=== PATIENT | female | born 1940 | race Caucasian/White ===

== ENCOUNTER 2016-08-02 12:43 | Observation (INO) | payer BC ==
[2016-08-02 13:01] VITALS: BMI 23.4
--- NOTE | 2016-08-02 14:18 | PDOC ---
History of Present Illness - General Chief Complaint: Chest Pain Stated Complaint: POST SURG/ CARDIAC EVALUATION (REFERRED) Time Seen by Provider: 08/02/16 13:48 History Source: Patient Exam Limitations: No Limitations - History of Present Illness Initial Comments: 08/02/16 14:36 76-year-old female with recent left hip surgery performed at [facility] presents the ED for evaluation of episodic chest pain that occurred this morning accompanied with mild dizziness. Patient states took her home blood pressure which happened to be 86/50 with a heart rate of 122. Patient states went to her PCPs office today who had her seen by the home management supervisor Dr. Hampton who was concerned the patient might have a PE despite being on Eliquis which she was prescribed a few weeks ago after finding a DVT in her left leg. Patient states is currently on Lopressor, aspirin, and Cozaar. Patient is currently asymptomatic including dizziness, palpitations, shortness of breath, or calf tenderness. Presenting Symptoms: Chest Pain, Dizziness (mild this am) Timing/Duration: reports: resolved prior to arrival Severity/Quality: reports: mild, pressure Location: reports: substernal (left) Chest Pain Radiation: reports: no radiation Activities at Onset: reports: none Prior Chest Pain/Cardiac Workup: reports: No prior chest pain Beta Pari given by EMS (Core Measure): No Beta Pari taken at Home (Core Measure): Yes Beta Pari indicated at this time? (Core Measure): No Associated Symptoms: Yes: Chest Pain/pressure, Dizziness Past History - Past Medical History Allergies/Adverse Reactions: Allergies Allergy/AdvReac Type Severity Reaction Status Date / Time methylprednisolone AdvReac Intermediate Elevated Verified 06/04/11 22:20 Blood Pressure risedronate sodium AdvReac Intermediate Elevated Verified 06/04/11 22:19 [From Actonel] Blood Pressure Home Medications: Ambulatory Orders Aspirin [ASA -] 81 mg PO DAILY 08/02/16 Eliquis - 5 mg PO BID 08/02/16 Losartan Potassium [Cozaar -] 50 mg PO DAILY 08/02/16 Metoprolol Tartrate [Lopressor -] 25 mg PO HS 08/02/16 Metoprolol Tartrate [Lopressor] 50 mg PO AM 08/02/16 Cardiac Disorders: Yes HTN: Yes Hypercholesterolemia: Yes - Psycho/Social/Smoking Cessation Hx Anxiety: No Suicidal Ideation: No Smoking Status: No Smoking History: Never smoked Number of Cigarettes Smoked Daily: 0 Information on smoking cessation initiated: No Patient Lives Alone: No Lives with/in: spouse/SO Review of Systems - Review of Systems Able to Perform ROS?: Yes Constitutional: No: Symptoms Reported HEENTM: No: Symptoms Reported Respiratory: No: Symptoms reported Cardiac (ROS): Yes: Chest Pain, Lightheadedness ABD/GI: No: Symptoms Reported : No: Symptoms Reported Musculoskeletal: No: Symptoms Reported Integumentary: No: Symptoms Reported Neurological: Yes: Dizziness Endocrine: No: Symptoms Reported Hematologic/Lymphatic: No: Symptoms Reported *Physical Exam - Vital Signs Last Vital Signs Temp Pulse Resp BP Pulse Ox 98.1 F 98 H 18 148/69 98 08/02/16 16:55 08/02/16 16:55 08/02/16 16:55 08/02/16 16:55 08/02/16 16:55 - Physical Exam General Appearance: Yes: Nourished, Appropriately Dressed. No: Apparent Distress HEENT: negative: Pale Conjunctivae Neck: positive: Normal Thyroid, Supple Respiratory/Chest: positive: Lungs Clear, Normal Breath Sounds. negative: Respiratory Distress, Accessory Muscle Use Cardiovascular: positive: Regular Rhythm, Tachycardia. negative: Murmur Gastrointestinal/Abdominal: positive: Soft. negative: Tenderness Extremity: positive: Normal Capillary Refill. negative: Pedal Edema Integumentary: positive: Normal Color, Warm, Moist Neurologic: positive: Motor Strength 5/5 Heart Score/ECG Review - History History: Slightly suspicious - Electrocardiogram EKG: Normal - Age Age: >/= 65 - Risk Factors Risk Factors Heart Score: Yes Hx Hypercholesterolemia, Yes Hx Hypertension Based on the list above the patient has:: 1-2 risk factors - ECG Intrepretation Rhythm: Regular Rhythm (rate [address] elevation. Intervals are regular) ED Treatment Course - LABORATORY CBC & Chemistry Diagram: 08/02/16 14:19 08/02/16 14:19 - ADDITIONAL ORDERS Additional order review: Laboratory Results 08/02/16 08/02/16 08/02/16 14:19 14:19 14:19 INR 1.21 H PTT (Actin FS) 36.6 H Sodium 143 Potassium 4.0 Chloride 104 Carbon Dioxide 24 Anion Gap 15 BUN 15 Creatinine 0.7 Creat Clearance w eGFR > 60 Random Glucose 128 H Calcium 8.8 Magnesium 2.1 Total Bilirubin 0.3 AST 19 ALT 24 Alkaline Phosphatase 89 Creatine Kinase 78 Troponin I 0.06 H Total Protein 6.7 Albumin 3.9 08/02/16 14:19 RBC 4.56 MCV 85.3 MCHC 33.3 RDW 13.0 MPV 8.4 Neutrophils % 71.9 Lymphocytes % 21.9 Monocytes % 5.8 Eosinophils % 0.1 Basophils % 0.3 - RADIOLOGY Radiology Studies Ordered: Category Date Time Status CHEST CT WITH CONTRAST [CT] Stat CT Scan 08/02/16 16:00 Completed Medical Decision Making - Medical Decision Making 08/02/16 16:40 Patient sent here from home management supervisor to rule out PE secondary to complaint of chest pain and elevated heart rate at home based on home monitor. Patient currently on Eliquis for DVT that was diagnosed last week in her left leg likely due to her recent hip surgery. Patient then had no acute findings. Patient was ordered for cardiac workup including a CT w/ contrast. will contact cardiology shortly 08/02/16 17:44 CT of the chest shows no evidence of PE or other acute findings. Call placed to home management supervisor Dr. Johnson to discuss the results. 08/02/16 17:45 Laboratory Tests 08/02/16 08/02/16 08/02/16 14:19 14:19 14:19 WBC 7.9 Hgb 12.9 Hct 38.9 Neutrophils % 71.9 INR 1.21 H PTT (Actin FS) Sodium 143 Potassium 4.0 Chloride 104 Carbon Dioxide 24 BUN 15 Creatinine 0.7 Creat Clearance w eGFR > 60 Random Glucose 128 H Calcium 8.8 Magnesium 2.1 Total Bilirubin 0.3 AST 19 ALT 24 Creatine Kinase 78 Troponin I 0.06 H 08/02/16 14:19 WBC Hgb Hct Neutrophils % INR PTT (Actin FS) 36.6 H Sodium Potassium Chloride Carbon Dioxide BUN Creatinine Creat Clearance w eGFR Random Glucose Calcium Magnesium Total Bilirubin AST ALT Creatine Kinase Troponin I Patient also has a mildly elevated troponin. Patient remains asymptomatic. 08/02/16 18:[address] Alonso who will accept patient to service on telemetry and recommended to add an echocardiogram. Call placed to Dr. Yap for admission. 08/02/16 18:[address] Yap who will be the medical provider for this patient. *DC/Admit/Observation/Transfer Diagnosis at time of Disposition: Elevated troponin Chest pain Qualifiers: Chest pain type: unspecified Qualified Code(s): R07.9 - Chest pain, unspecified - Discharge Dispostion Admit: Yes Decision to Admit order Date/Time: Decision to Admit Order Category Date Time Status Decision to Admit to Hospital Routine Admission 08/02/16 18:24 Active - Referrals Referrals: Jovan Castillo MD [Primary Care Provider] -
[2016-08-02 14:42] LABS: BASOPHIL 0.3 % (0-2.0); EOSINOPHIL 0.1 % (0-4.5); MCH 28.4 pg (25.7-33.7); MCHC 33.3 g/dl (32.0-36.0); MEAN CELL VOLUME 85.3 fl (80-96); MEAN PLT VOLUME 8.4 fl (7.5-11.1); NEUTROPHILS 71.9 % (42.8-82.8); PLATELET COUNT 173 K/MM3 (134-434); WHITE BLOOD COUNT 7.9 K/mm3 (4.0-10.0)
[2016-08-02 15:26] LABS: ALBUMIN 3.9 g/dl (3.4-5.0); ANION GAP 15 (8-16); BILIRUBIN,TOTAL 0.3 mg/dL (0.2-1.0); CALCIUM 8.8 mg/dL (8.5-10.1); CO2 24 mmol/L (21-32); CREATININE 0.7 mg/dL (0.55-1.02); GLUCOSE,RANDOM 128 mg/dL (74-106); MAGNESIUM 2.1 mg/dL (1.8-2.4); SGOT/AST 19 U/L (15-37); SGPT/ALT 24 U/L (12-78); TOT PROT 6.7 g/dl (6.4-8.2)
[2016-08-02 15:29] LABS: ALK PHOS 89 U/L (45-117); TROPONIN I 0.06 ng/ml (0.00-0.05)
[2016-08-02 15:31] LABS: INR 1.21 (0.82-1.09); PROTHROMBIN TIME (PATIENT) 13.4 SEC (9.98-11.88)
--- NOTE | 2016-08-02 18:52 | PDOC ---
*Physical Exam - Vital Signs Last Vital Signs Temp Pulse Resp BP Pulse Ox 98.1 F 98 H 18 148/69 98 08/02/16 16:55 08/02/16 16:55 08/02/16 16:55 08/02/16 16:55 08/02/16 16:55 ED Treatment Course - LABORATORY CBC & Chemistry Diagram: 08/02/16 14:19 08/02/16 14:19 - ADDITIONAL ORDERS Additional order review: Laboratory Results 08/02/16 08/02/16 08/02/16 14:19 14:19 14:19 INR 1.21 H PTT (Actin FS) 36.6 H Sodium 143 Potassium 4.0 Chloride 104 Carbon Dioxide 24 Anion Gap 15 BUN 15 Creatinine 0.7 Creat Clearance w eGFR > 60 Random Glucose 128 H Calcium 8.8 Magnesium 2.1 Total Bilirubin 0.3 AST 19 ALT 24 Alkaline Phosphatase 89 Creatine Kinase 78 Troponin I 0.06 H Total Protein 6.7 Albumin 3.9 08/02/16 14:19 RBC 4.56 MCV 85.3 MCHC 33.3 RDW 13.0 MPV 8.4 Neutrophils % 71.9 Lymphocytes % 21.9 Monocytes % 5.8 Eosinophils % 0.1 Basophils % 0.3 Medical Decision Making - Medical Decision Making 08/02/16 18:52 Pt seen by Midlevel Provider I agree with plan as outlined by Midlevel Provider *DC/Admit/Observation/Transfer Diagnosis at time of Disposition: Elevated troponin Chest pain Qualifiers: Chest pain type: unspecified Qualified Code(s): R07.9 - Chest pain, unspecified - Discharge Dispostion Condition at time of disposition: Fair - Referrals - Patient Instructions - Post Discharge Activity
[2016-08-02 19:58] LABS: TROPONIN I 0.06 ng/ml (0.00-0.05)
[2016-08-02] MEDS ORDERED: APIXABAN 5 MG TABLET PO ONE (21:45)
--- NOTE | 2016-08-02 23:39 | HP ---
Admitting History and Physical - Admission Chief Complaint: Chest pain History of Present Illness: Pt is a 76 y/o female who had undergone a Lt hip replacement in 06/14. Pt went to see her PMD/cardio bc of chest pain w/ an intensity of 5/10 and substernal. The chest pain is nonradiating. Pt denies SOB but was feeling lightheaded and went to doctor who found pt to have heart rate of 122 and BP 86/50 and pt was sent to the ER where she had a ct scan chest wc was )-) for PE. Pt also recently started on eliquis for ?DVT. In the ER pt also found to have slightly elevated troponin. History Source: Patient - Past Medical History Cardiovascular: Yes: HTN - Past Surgical History Past Surgical History: Yes: Joint Replacement (Lt hip replacement) - Smoking History Smoking history: Never smoked Aproximately how many cigarettes per day: 0 - Alcohol/Substance Use Hx Alcohol Use: No Home Medications - Allergies Allergies/Adverse Reactions: Allergies Allergy/AdvReac Type Severity Reaction Status Date / Time No Known Drug Allergies Allergy Verified 08/02/16 21:35 methylprednisolone AdvReac Intermediate Elevated Verified 06/04/11 22:20 Blood Pressure risedronate sodium AdvReac Intermediate Elevated Verified 06/04/11 22:19 [From Actonel] Blood Pressure - Home Medications Home Medications: Ambulatory Orders Aspirin [ASA -] 81 mg PO DAILY tab.chew 08/03/16 Losartan Potassium [Cozaar -] 50 mg PO DAILY tablet 08/03/16 Metoprolol Tartrate [Lopressor -] 50 mg PO AM tablet 08/03/16 Family Disease History - Family Disease History Family History: Unremarkable Review of Systems - Review of Systems Constitutional: reports: No Symptoms Eyes: reports: No Symptoms HENT: reports: No Symptoms Neck: reports: No Symptoms Cardiovascular: reports: Chest Pain Respiratory: reports: No Symptoms Gastrointestinal: reports: No Symptoms Physical Examination Vital Signs: Vital Signs Temperature 97.9 F 08/02/16 21:15 Pulse Rate 82 08/02/16 21:15 Respiratory Rate 20 08/02/16 21:15 Blood Pressure 131/74 08/02/16 21:15 O2 Sat by Pulse Oximetry (%) 98 08/02/16 16:55 Constitutional: Yes: Well Nourished Cardiovascular: Yes: WNL, Regular Rate and Rhythm Respiratory: Yes: WNL, Regular, CTA Bilaterally Gastrointestinal: Yes: WNL, Normal Bowel Sounds, Soft Breast(s): Yes: WNL Extremities: Yes: WNL Edema: No Neurological: Yes: WNL, Alert, Oriented Problem List - Problems (1) Chest pain Assessment/Plan: admit to tele Cardio consult CT scan chest negative for PE Pt is on eliquis for ?DVT Will check dopplers Code(s): R07.9 - CHEST PAIN, UNSPECIFIED Qualifiers: Chest pain type: unspecified Qualified Code(s): R07.9 - Chest pain, unspecified (2) Elevated troponin Assessment/Plan: Serial cpk/troponin As per cardio Check echo/stress test Code(s): R79.89 - OTHER SPECIFIED ABNORMAL FINDINGS OF BLOOD CHEMISTRY
[2016-08-03 02:23] LABS: URINE APPEARANCE CLEAR; URINE BILIRUBIN NEGATIVE (NEGATIVE); URINE BLOOD NEGATIVE (NEGATIVE); URINE COLOR LTYELLOW; URINE GLUCOSE (UA) 1+ (NEGATIVE); URINE KETONE NEGATIVE (NEGATIVE); URINE LEUK ESTERASE NEGATIVE (NEGATIVE); URINE NITRITE NEGATIVE (NEGATIVE); URINE PROTEIN NEGATIVE (NEGATIVE); URINE UROBILINOGEN NEGATIVE E.U./dl (0.2-1.0)
[2016-08-03] MEDS ORDERED: METOPROLOL TARTRATE 50 MG TABLET (FP) PO SCH (07:00)
--- NOTE | 2016-08-03 08:30 | PN ---
Progress Note (short form) - Note Progress Note: Cardiology Consult Dictated 76F s/p hip surgery, recently diagnosed DVT on Eliquis referred to ER by my associate yesterday due to chest pain, elevated heart rate and mild SOB. CTA negative for PE ECG without acute ST changes. REC: 1. Echo 2. Persantine MIBI 3. Vascular evaluation for incidentally noted splenic artery aneurysm
[2016-08-03 09:23] LABS: TROPONIN I 0.04 ng/ml (0.00-0.05)
[2016-08-03] MEDS ORDERED: ASPIRIN 81 MG CHEWABLE TABLETS PO SCH (10:00)
[2016-08-03] MEDS ORDERED: LOSARTAN POTASSIUM 50 MG TABLET (FP) PO SCH (10:00)
[2016-08-03] MEDS ORDERED: WATER IVPB ONE (10:00)
[2016-08-03] MEDS ORDERED: DEXTROSE 5% IVPB ONE (10:00)
[2016-08-03] MEDS ORDERED: DIPYRIDAMOLE STRESS TEST IVPB ONE (10:00)
--- NOTE | 2016-08-03 14:12 | EKG ---
Test Reason : Blood Pressure : / mmHG Vent. Rate : 096 BPM Atrial Rate : 096 BPM P-R Int : 164 ms QRS Dur : 072 ms QT Int : 338 ms P-R-T Axes : 059 029 048 degrees QTc Int : 427 ms NORMAL SINUS RHYTHM NORMAL ECG WHEN COMPARED WITH ECG OF 05-JUN-2011 02:59, NO SIGNIFICANT CHANGE WAS FOUND Confirmed by NICCI BROWNE MD ([id number]) on 08/03/2016 2:12:12 PM Referred By: Confirmed By:NICCI BROWNE MD
--- NOTE | 2016-08-03 14:12 | EKG ---
Test Reason : Blood Pressure : / mmHG Vent. Rate : 107 BPM Atrial Rate : 107 BPM P-R Int : 152 ms QRS Dur : 070 ms QT Int : 348 ms P-R-T Axes : 061 059 035 degrees QTc Int : 464 ms SINUS TACHYCARDIA WITH OCCASIONAL and consecutive PREMATURE VENTRICULAR COMPLEXES POSSIBLE LEFT ATRIAL ENLARGEMENT ABNORMAL ECG WHEN COMPARED WITH ECG OF 02-AUG-2016 13:14, PREMATURE VENTRICULAR COMPLEXES ARE NOW PRESENT Confirmed by PAVAN ROSALES, NICCI ([id number]) on 08/03/2016 2:12:07 PM Referred By: Confirmed By:NICCI BROWNE MD
[2016-08-03] MEDS: APIXABAN 5 MG TABLET PO SCH ×2 (15:26→21:29)
--- NOTE | 2016-08-03 17:40 | PN ---
Progress Note, Physician - Current Medication List Current Medications: Active Medications Apixaban (Eliquis -) 5 mg PO BID [facility] Last Admin: 08/03/16 15:26 Dose: 5 mg Aspirin (Asa -) 81 mg PO DAILY [facility] Last Admin: 08/03/16 15:26 Dose: 81 mg Losartan Potassium (Cozaar -) 50 mg PO DAILY [facility] Last Admin: 08/03/16 15:26 Dose: 50 mg Metoprolol Tartrate (Lopressor -) 25 mg PO HS [facility] Metoprolol Tartrate (Lopressor -) 50 mg PO AM [facility] Last Admin: 08/03/16 06:30 Dose: 50 mg - Objective Vital Signs: Vital Signs Temperature 97.7 F 08/03/16 17:00 Pulse Rate 88 08/03/16 17:00 Respiratory Rate 20 08/03/16 17:00 Blood Pressure 136/63 08/03/16 17:00 O2 Sat by Pulse Oximetry (%) 98 08/02/16 16:55 Neck: Yes: Supple Cardiovascular: Yes: WNL, Regular Rate and Rhythm Respiratory: Yes: WNL, Regular, CTA Bilaterally Gastrointestinal: Yes: WNL, Normal Bowel Sounds, Soft Labs: INR, PTT INR 1.21 (0.82-1.09) H 08/02/16 14:19 Problem List - Problems (1) Chest pain Assessment/Plan: Chest pain resolved BP stable DC home Stress test was normal Code(s): R07.9 - CHEST PAIN, UNSPECIFIED Qualifiers: Chest pain type: unspecified Qualified Code(s): R07.9 - Chest pain, unspecified (2) Elevated troponin Code(s): R79.89 - OTHER SPECIFIED ABNORMAL FINDINGS OF BLOOD CHEMISTRY
--- NOTE | 2016-08-03 19:14 | CONS ---
DATE OF CONSULTATION: DATE OF DICTATION: 08/03/2016 CONSULTATION REQUESTED BY: Greta Yap MD The patient is a 76-year-old female referred to the emergency room yesterday by my office partner, Dr. Melendez. She underwent recent left hip surgery at [facility] and was found in the office to be complaining of atypical chest pain associated with mild dizziness and was found to be relatively hypotensive in the office with a heart rate of 122. She was sent to the ER to rule out pulmonary embolism after she had been diagnosed with a left lower extremity DVT several weeks ago and has been on Eliquis. CT of the chest was negative for pulmonary embolism. Cardiac enzymes were negative but were slightly above 0 and therefore she was admitted for further observation and cardiac evaluation. The patient states she had some mild substernal chest tightness yesterday morning, which has resolved and has not recurred since yesterday morning. She denies shortness of breath, palpitations at this time, syncope or heart failure symptoms. Her past medical history is as outlined above and also includes hypertension. She is allergic to SOLU-MEDROL and RISEDRONATE. Her current medications include Eliquis 5 mg b.i.d., aspirin 81 mg daily, losartan 50 daily, Lopressor 25 in the morning and 25 nightly. Family history is noncontributory. SOCIAL HISTORY: Nonsmoker. PHYSICAL EXAMINATION: General: The patient is alert, no distress, afebrile. Vital Signs: Afebrile. Temperature 98.2. Pulse 99. Blood pressure 147/71. Neck: No bruits. Heart: S1, 2, regular. No murmurs. Chest: Clear. Abdomen: Soft, nontender. Extremities: No edema. EKG: Sinus at 96 beats per minute with no acute ST-T changes. Chest CT showed no pulmonary embolism but an incidentally detected 7 mm splenic artery aneurysm of unclear clinical significance. Laboratories were basically unremarkable. CBC was normal. INR 1.21. SMA-7 was normal. Cardiac enzymes: Negative CK x2. Troponin 0.06, 0.06, and the 3rd one is currently pending. ASSESSMENT: A 76-year-old female, recent hip surgery, with left lower extremity DVT, on anticoagulation, admitted for atypical chest pain and tachycardia. EKG without acute changes. Cardiac enzymes are negative x2. CTA negative for PE. PLAN: 1. Echo today. 2. Persantine nuclear stress test. 3. Further recommendations pending above diagnostic studies. Geo [id number]
[2016-08-03 20:22] VITALS: BP 147/65; PULSE 96; TEMP 98.2
[2016-08-03] MEDS ORDERED: METOPROLOL TARTRATE 25 MG TABLET (FP) PO SCH (22:00)
== END 2016-08-03 21:34 | disposition home or self-care (01) ==
LOC: JER 12:43 → JERBED 18:24 → J4W 21:24
PROVIDERS: ADMIT Internal Medicine; ATTEND Internal Medicine
DX: R07.89 Other chest pain (principal); R42 Dizziness and giddiness; Z86.718 Personal history of other venous thrombosis and embolism; Z79.01 Long term (current) use of anticoagulants; R00.0 Tachycardia, unspecified
CPT/HCPCS: 36415; 71260-TC; 78452-TC; 80053; 81003; 82550; 83735; 84484; 85025; 85610; 85730; 93005; 93010; 93017; 93306-TC; 93970-TC; 99285-25; A9502; G0378; J1245

== ENCOUNTER 2016-10-06 06:05 | Day surgery (SDC) | payer BC ==
[2016-10-05 13:16] VITALS: BMI 21.9
--- NOTE | 2016-10-05 13:55 | HP ---
- Patient Scheduled date of Surgery: 10/06/16 Scheduled Surgical Procedure: Phacoemulsification and cataract extraction with PCIOL Affected Eye: Right Chief Complaint (Indication for surgery): Decreased vision affecting ADLs - Ocular History Other Eye History: Narrow angle glaucoma Eye Medications: vigamoxt tid Od Previous Eye Surgery: s/p LPI OU - Medical History Illnesses: Hypertension (s/p hip replacement) Current Medications: Ambulatory Orders Aspirin [ASA -] 81 mg PO DAILY tab.chew 08/03/16 Losartan Potassium [Cozaar -] 50 mg PO DAILY tablet 08/03/16 Metoprolol Tartrate [Lopressor -] 50 mg PO AM tablet 08/03/16 Allergies/Adverse Reactions: Allergies Allergy/AdvReac Type Severity Reaction Status Date / Time methylprednisolone AdvReac Intermediate Elevated Verified 06/04/11 22:20 Blood Pressure risedronate sodium AdvReac Intermediate Elevated Verified 06/04/11 22:19 [From Actonel] Blood Pressure Ocular Examination - Best Corrected Visual Acuity Distance: Right eye: 20/50 Distance: Left eye: 20/40 - External/Slit Lamp Examination Abnormalities: Pi patent - Intraocular Pressure Intraocular Pressure - Right eye: 16 Intraocular Pressure-Left eye: 16 - Lens Lens: 3+ NS - Vitreous/Retina Vitreous/Retina: c:d 0.35 m/v/p wnl +pvd - Special Examination M - Right eye: pl-1.75 x 90 M - Left eye: +1.00-1.75 x 95 K - Right eye: 43.25/44.50x 180 K - Left eye: 43.25/44.25 x180 AL - Right eye: 22.62 AL - Left eye: 22.81 IOL bag: +22.5 d hoya 251 IOL sulcus: +21.5 d hoya 231 IOL AC: +19.0 d mta 4uo - Impression Impression: Cataract Right Eye - Plan Plan: Phacoemulsification and cataract extraction - IOL Right eye Post-hospital care will be provided in office on: 10/06/16
--- NOTE | 2016-10-05 14:30 | HP ---
History & Physical Update - History History: No Change - Physical Physical: No Change - Assessment Assessment: No Change - Plan Plan: No Change
[~2016-10-06 06:05] MED LIST: ACETAMINOPHEN 325 MG TABLET (FP) PO PRN; TOBRAMYCIN/DEXAMETHASONE OPHTH. OINTMENT 1 TUBE TP ONE
[2016-10-06] MEDS ORDERED: TROPICAMIDE 1% OPHTH SOLN 15 ML BOTTLE ONE (06:31)
[2016-10-06] MEDS ORDERED: CIPROFLOXACIN 0.3% EYE DROPS 5 ML BOTTLE ONE (06:32)
[2016-10-06] MEDS ORDERED: DICLOFENAC SODIUM 0.1% OPHTHALMIC 2.5ML BOTTLE ONE (06:32)
[2016-10-06] MEDS ORDERED: PHENYLEPHRINE 2.5% OPHTH SOLN 15 ML BOTTLE ONE (06:32)
[2016-10-06] MEDS: TROPICAMIDE 1% OPHTH SOLN 15 ML BOTTLE OP SCH ×3 (06:40→07:09)
[2016-10-06] MEDS: DICLOFENAC SODIUM 0.1% OPHTHALMIC 2.5ML BOTTLE OP SCH ×3 (06:40→07:08)
[2016-10-06] MEDS: PHENYLEPHRINE 2.5% OPHTH SOLN 15 ML BOTTLE OP SCH ×3 (06:40→07:08)
[2016-10-06] MEDS: CIPROFLOXACIN HCL 0.3% OPHTH 2.5ML BOTTLE OP SCH ×3 (06:40→07:08)
[2016-10-06 06:41] VITALS: TEMP 97.9
[2016-10-06] MEDS ORDERED: TOBRAMYCIN/DEXAMETHASONE OPHTH. OINTMENT 1 TUBE ONE (07:11)
[2016-10-06] MEDS ORDERED: EPINEPHrine/PF 1 MG/1 ML (1:1,000) AMPULE ONE (07:11)
[2016-10-06] MEDS ORDERED: POVIDONE-IODINE 5% OPHTHALMIC PREP 30 ML SOLUTION ONE (07:12)
[2016-10-06] MEDS ORDERED: LIDOCAINE HCL/PF 1% SDV 5ML VIAL ONE (07:12)
[2016-10-06] MEDS ORDERED: ACETYLCHOLINE 1:100 INTRA-OCUL 20 MG/2 ML KIT ONE (07:12)
[2016-10-06] MEDS ORDERED: BSS (NA/CA/MG/K) BALANCED SALT SOLUTION OPHTH SOLN 15 ML BOTTLE ONE (07:12)
[2016-10-06] MEDS ORDERED: LIDOCAINE HCL 2% JELLY (5 ML/TUBE) ONE (07:13)
[2016-10-06] MEDS ORDERED: LIDOCAINE HCL 2% JELLY (5 ML/TUBE) TP ONE (07:29)
[2016-10-06] MEDS ORDERED: MIDAZOLAM HCL 2 MG/2 ML SINGLE DOSE VIAL ONE ×2 (07:34→07:52)
[2016-10-06] MEDS ORDERED: LIDOCAINE HCL 1% PRESERVATIVE FREE - 30ML VIAL IO ONE (07:43)
[2016-10-06] MEDS ORDERED: CHONDROITIN SU A/HYALUR SOD 1 KIT IO ONE (07:44)
[2016-10-06] MEDS ORDERED: TOBRAMYCIN/DEXAMETHASONE OPHTH. OINTMENT 1 TUBE TP ONE (08:21)
--- NOTE | 2016-10-06 08:27 | OP ---
Ophthalmology Operative Note Pre-Operative Diagnosis: Cataract Affected Eye: Right Operation: Phacoemulsification and cataract extraction with PCIOL Findings: mature cataract right eye Post-Operative Diagnosis: Other (mature cataract right eye) Stamping Press Operator: None Anesthesiologist: Rosa Phillips MD Anesthesia: Topical Specimens Removed: none Estimated blood loss: none Drains & Tubes with Location: none Operative Report Dictated: Yes
[2016-10-06 09:45] VITALS: BP 130/70; PULSE 70
--- NOTE | 2016-10-06 11:13 | OP ---
DATE OF OPERATION: PREOPERATIVE DIAGNOSIS: Cataract right eye. POSTOPERATIVE DIAGNOSIS: Mature cataract right eye. PROCEDURE: Phacoemulsification and cataract extraction with insertion of posterior chamber intraocular lens right eye. SURGEON: Demi Go MD HAND TUBE BENDER: None. ANESTHESIA: Topical. ANESTHESIOLOGIST: Dr. Phillips OPERATIVE PROCEDURE: The patient received viscous lidocaine gel in the holding area and was brought to the operating room and prepped and draped in the usual sterile fashion and gently sedated. Ophthalmic Betadine was instilled into the inferior fornix, and lashes were taped out of the surgical field. An eyelid speculum was placed into the right eye. A paracentesis was made in superior clear cornea at the limbus. Then 0.5 mL of nonpreserved lidocaine was injected into the anterior chamber, and viscoelastic material was instilled into the anterior chamber via the paracentesis. A 2.4-mm keratome was then used to create the main incision in temporal clear cornea at the limbus. A continuous curvilinear capsulorrhexis was performed using a cystotome and Utrata forceps. Hyrodissection of the lens cortex was performed using BSS on a cannula until the nucleus was noted to be freely rotating. The phacoemulsification tip was then inserted via the main wound and used to sculpt 2 perpendicular grooves into the lens nucleus. The nucleus was cracked into 4 quadrants using 2 instruments. Each quadrant was lifted out of the capsule into the iris plane and individually phacoemulsified. The remaining cortical material was then aspirated using the irrigation and aspiration port. The capsular bag was inflated using Provisc, and a preloaded Hoya lens model 251, power +22.5 diopter was injected into the capsular bag and centered using Sinskey hook. The residual viscoelastic was removed from the anterior chamber using irrigation and aspiration. The wound edges were hydrated using BSS. The wound was tested for leakage. It was found to be watertight. Therefore, Tobradex ointment was placed in the eye, and a speculum was removed from the eye. A sterile dressing and shield were placed over the eye, and the patient was transferred to the recovery room in stable condition and told to follow up in the evening. DEMI GO M.D. [id number]
== END 2016-10-06 09:40 | disposition home or self-care (01) ==
LOC: JASU-SURG 06:05
PROVIDERS: ATTEND Ophthalmology
PROC: 08RK3JZ Replacement of Left Lens with Synthetic Substitute, Percutaneous Approach (ICD-10-PCS; principal; 2016-10-06 07:30)
DX: H25.091 Other age-related incipient cataract, right eye (principal)

== ENCOUNTER 2018-04-12 08:15 | Day surgery (SDC) | payer BC ==
[2018-04-10 16:21] VITALS: BMI 23.3
--- NOTE | 2018-04-11 14:13 | HP ---
- Patient Scheduled date of Surgery: 04/12/18 Scheduled Surgical Procedure: Phacoemulsification and cataract extraction with PCIOL Affected Eye: Left Chief Complaint (Indication for surgery): Decreased vision affecting ADLs - Ocular History Other Eye History: Other (narrow angles, PVD OS) Eye Medications: vigamox Previous Eye Surgery: s/p ce/pciol OD mature + 22.5 AUOOTO - Medical History Illnesses: Hypertension, Hypercholesterolemia Current Medications: Ambulatory Orders Aspirin [ASA -] 81 mg PO DAILY tab.chew 08/03/16 Losartan Potassium [Cozaar -] 50 mg PO DAILY tablet 08/03/16 Metoprolol Tartrate [Lopressor -] 50 mg PO AM tablet 08/03/16 Allergies/Adverse Reactions: Allergies Allergy/AdvReac Type Severity Reaction Status Date / Time risedronate sodium Allergy Intermediate Elevated Verified 04/10/18 16:18 [From Actonel] Blood Pressure Ocular Examination - Best Corrected Visual Acuity Distance: Right eye: 20/20 Distance: Left eye: 20/50- - External/Slit Lamp Examination Abnormalities: PI patent - Intraocular Pressure Intraocular Pressure - Right eye: 16 Intraocular Pressure-Left eye: 16 - Lens Lens: 3+ NS vacuoles - Vitreous/Retina Vitreous/Retina: c:d 0.4 m/v wnl + pVD, p wnl - Special Examination M - Right eye: plano-1.25 x 090 M - Left eye: +1.00-2.00 x 095 K - Right eye: 43/44.25 x 175 K - Left eye: 43.25/44.50 x 090 AL - Left eye: 22.58 IOL bag: +23.0 AUOOTO IOL sulcus: +22..0 [id number] IOL AC: +19.5 MTA4uo - Impression Impression: Cataract Left Eye - Plan Plan: Phacoemulsification and cataract extraction - IOL Left eye Post-hospital care will be provided in office on: 04/12/18
--- NOTE | 2018-04-12 07:20 | HP ---
History & Physical Update - History History: No Change - Physical Physical: No Change - Assessment Assessment: No Change - Plan Plan: No Change (Reviewed H and P from Dr. Castillo on 03/29/18 no changes)
[~2018-04-12 08:15] MED LIST changes: +BSS (NA/CA/MG/K) BALANCED SALT SOLUTION OPHTH SOLN 15 ML BOTTLE IO ONE; +CHONDROITIN SU A/HYALUR SOD 1 KIT IO ONE; +LIDOCAINE HCL 1% PRESERVATIVE FREE - 30ML VIAL IO ONE; +LIDOCAINE HCL 2% JELLY (5 ML/TUBE) TP ONE; +POVIDONE-IODINE 5% OPHTHALMIC PREP 30 ML SOLUTION OS ONE; +TOBRAMYCIN 0.3% OPHTH OINT 3.5 GM OS ONE
[2018-04-12] MEDS ORDERED: KETOROLAC TROMETHAMINE 0.5% EYE DROP 1 DROP DROPS ONE (08:37)
[2018-04-12] MEDS ORDERED: TROPICAMIDE 1% OPHTH SOLN 15 ML BOTTLE ONE (08:37)
[2018-04-12] MEDS ORDERED: PHENYLEPHRINE 2.5% OPHTH SOLN 15 ML BOTTLE ONE (08:37)
[2018-04-12] MEDS ORDERED: CIPROFLOXACIN HCL 0.3% OPHTH 2.5ML BOTTLE ONE (08:37)
[2018-04-12] MEDS: PHENYLEPHRINE 2.5% OPHTH SOLN 15 ML BOTTLE OP SCH ×2 (08:45→08:55)
[2018-04-12] MEDS: CIPROFLOXACIN HCL 0.3% OPHTH 2.5ML BOTTLE OP SCH ×3 (08:45→09:05)
[2018-04-12] MEDS: TROPICAMIDE 1% OPHTH SOLN 15 ML BOTTLE OP SCH ×3 (08:45→09:05)
[2018-04-12] MEDS: KETOROLAC TROMETHAMINE 0.5% EYE DROP 1 DROP DROPS OP SCH ×3 (08:45→09:05)
[2018-04-12] MEDS ORDERED: MIDAZOLAM HCL 2 MG/2 ML SINGLE DOSE VIAL ONE (09:10)
[2018-04-12] MEDS ORDERED: LIDOCAINE HCL 2% JELLY (5 ML/TUBE) TP ONE (09:24)
[2018-04-12] MEDS ORDERED: POVIDONE-IODINE 5% OPHTHALMIC PREP 30 ML SOLUTION OS ONE (09:27)
[2018-04-12] MEDS ORDERED: BSS (NA/CA/MG/K) BALANCED SALT SOLUTION OPHTH SOLN 15 ML BOTTLE IO ONE (09:34)
[2018-04-12] MEDS ORDERED: LIDOCAINE HCL 1% PRESERVATIVE FREE - 30ML VIAL IO ONE (09:34)
[2018-04-12] MEDS ORDERED: CHONDROITIN SU A/HYALUR SOD 1 KIT IO ONE ×2 (09:38)
[2018-04-12] MEDS ORDERED: EPINEPHrine/PF 1 MG/1 ML (1:1,000) AMPULE SQ ONE (09:39)
[2018-04-12] MEDS ORDERED: TOBRAMYCIN/DEXAMETHASONE OPHTH. OINTMENT 1 TUBE TP ONE (10:11)
--- NOTE | 2018-04-12 10:15 | OP ---
Ophthalmology Operative Note Pre-Operative Diagnosis: Cataract Affected Eye: Left Operation: Phacoemulsification and cataract extraction with PCIOL Findings: NS cataract left eye Post-Operative Diagnosis: Same as Pre-op Spring Tester: None Anesthesiologist: Goran Acosta Anesthesia: Topical Specimens Removed: none Estimated blood loss: < 1 cc Drains & Tubes with Location: none Operative Report Dictated: Yes
[2018-04-12] MEDS ORDERED: CHONDROITIN SU A/HYALUR SOD 1 KIT ONE (10:28)
--- NOTE | 2018-04-12 11:14 | OP ---
DATE OF OPERATION: 04/12/2018 PREOPERATIVE DIAGNOSIS: Nuclear sclerotic cataract, left eye. POSTOPERATIVE DIAGNOSIS: Nuclear sclerotic cataract, left eye. PROCEDURE: Phacoemulsification and cataract extraction with insertion of posterior chamber intraocular lens, left eye. SURGEON: Demi Go MD HOTEL OFFICE MANAGER: None. ANESTHESIA: Topical. ANESTHESIOLOGIST: Goran Acosta CRNA OPERATIVE PROCEDURE: The patient received 2% lidocaine gel and was then gently sedated and prepped and draped in the usual sterile fashion so as to expose only the left eye. Ophthalmic Betadine was instilled into the inferior fornix, and the lashes were taped out of the surgical field. An eyelid speculum was placed into the left eye. A paracentesis was made in inferior clear cornea at the limbus. Next, 0.5 mL of nonpreserved lidocaine 1% was injected into the anterior chamber. Viscoelastic material was instilled into the anterior chamber via the paracentesis. A 2.4-mm keratome was then used to create the main incision in temporal clear cornea at the limbus. A continuous curvilinear capsulorrhexis was performed using a cystotome and Utrata forceps. Hydrodissection of the lens cortex was performed using BSS on a cannula until the nucleus was noted to be freely rotating. The phacoemulsification tip was then inserted via the main wound and used to sculpt 2 perpendicular grooves into the lens nucleus. The nucleus was cracked into 4 quadrants. Each quadrant was lifted out of the capsule, into the iris plane, and individually phacoemulsified. The remaining cortical material was then aspirated using the irrigation and aspiration port. The capsular bag was inflated with Provisc, and a preloaded AcrySof lens model [id number], power +23.0 diopters was injected into the capsular bag and centered using a Sinskey hook. The residual viscoelastic material was removed from the anterior chamber using irrigation and aspiration. The wound edges were hydrated using BSS. The wound was tested for leakage; it was found to be watertight. TobraDex ointment was placed in the eye and the speculum was removed from the eye and the eyelid was closed. A sterile dressing and shield were placed over the eye, and the patient was transferred to the recovery room in stable condition, told to follow up in 1 day. DEMI GO M.D. [id number]
[2018-04-12 14:28] VITALS: BP 144/78; PULSE 66; TEMP 97.8
== END 2018-04-12 12:00 | disposition home or self-care (01) ==
LOC: JASU-SURG 08:15
PROVIDERS: ATTEND Ophthalmology
PROC: 08RK3JZ Replacement of Left Lens with Synthetic Substitute, Percutaneous Approach (ICD-10-PCS; principal; 2018-04-12 09:30)
DX: H25.12 Age-related nuclear cataract, left eye (principal)

== ENCOUNTER 2021-06-16 18:05 | Observation (INO) | payer BC ==
[2021-06-16 18:56] VITALS: BMI 20.7
[2021-06-16 21:29] LABS: BASO % 0.2 % (0-2.0); EOS % 0.2 % (0-4.5); HEMATOCRIT 41.7 % (32.4-45.2); HEMOGLOBIN 14.3 GM/dL (10.7-15.3); LYMPH % 21.3 % (8-40); MCH 29.4 pg (25.7-33.7); MCHC 34.2 g/dl (32.0-36.0); MEAN CELL VOLUME 86.1 fl (80-96); MEAN PLT VOLUME 8.4 fl (7.5-11.1); MONO % 7.4 % (3.8-10.2); NEUT % 70.9 % (42.8-82.8); PLATELET COUNT 192 10^3/uL (134-434); RBC 4.85 M/mm3 (3.60-5.2); RDW 12.8 % (11.6-15.6); WHITE BLOOD COUNT 9.7 K/mm3 (4.0-10.0)
[2021-06-16 21:41] LABS: CHLORIDE 101 mmol/L (98-107); SODIUM 136 mmol/L (136-145)
[2021-06-16 21:45] LABS: ALBUMIN 3.9 g/dl (3.4-5.0); ANION GAP 10 MMOL/L (8-16); BLOOD UREA NITROGEN 16.2 mg/dL (7-18); CALCIUM 9.2 mg/dL (8.5-10.1); CO2 25 mmol/L (21-32); GLUCOSE,RANDOM 102 mg/dL (74-106)
[2021-06-16 21:48] LABS: CREATININE 0.8 mg/dL (0.55-1.3); SGOT/AST 28 U/L (15-37); SGPT/ALT 36 U/L (13-61)
[2021-06-16 21:51] LABS: ALK PHOS 75 U/L (45-117); BILIRUBIN,TOTAL 0.5 mg/dL (0.2-1); TOT PROT 6.8 g/dl (6.4-8.2)
[2021-06-17] MEDS ORDERED: CEFTRIAXONE 1 GM/50 ML BAG ONE (06:08)
[2021-06-17] MEDS: CEFTRIAXONE 1 GM in DEXTROSE 5%-WATER - 50 ML IVPB SCH (06:11)
[2021-06-17] MEDS ORDERED: METOPROLOL TARTRATE 50 MG TABLET (FP) ONE (06:25)
[2021-06-17] MEDS: METOPROLOL TARTRATE 50 MG TABLET (FP) PO SCH (06:26)
[2021-06-17 09:14] LABS: BASO % 0.2 % (0-2.0); EOS % 0.1 % (0-4.5); HEMATOCRIT 41.7 % (32.4-45.2); HEMOGLOBIN 13.9 GM/dL (10.7-15.3); LYMPH % 20.7 % (8-40); MCH 28.8 pg (25.7-33.7); MCHC 33.3 g/dl (32.0-36.0); MEAN CELL VOLUME 86.6 fl (80-96); MEAN PLT VOLUME 8.8 fl (7.5-11.1); MONO % 7.9 % (3.8-10.2); NEUT % 71.1 % (42.8-82.8); PLATELET COUNT 193 10^3/uL (134-434); RBC 4.81 M/mm3 (3.60-5.2); RDW 12.7 % (11.6-15.6); WHITE BLOOD COUNT 9.4 K/mm3 (4.0-10.0)
[2021-06-17] MEDS ORDERED: ASPIRIN 81 MG CHEWABLE TABLETS ONE (09:15)
[2021-06-17] MEDS ORDERED: HEPARIN NA (PORCINE) 5,000 UNITS/ML 1ML VIAL ONE (09:16)
[2021-06-17] MEDS ORDERED: LOSARTAN POTASSIUM 50 MG TABLET ONE (09:16)
[2021-06-17] MEDS: ASPIRIN 81 MG CHEWABLE TABLETS PO SCH (09:24)
[2021-06-17] MEDS: LOSARTAN POTASSIUM 50 MG TABLET PO SCH (09:24)
[2021-06-17] MEDS: HEPARIN NA (PORCINE) 5,000 UNITS/ML 1ML VIAL SQ SCH ×2 (09:24→21:09)
[2021-06-17 10:06] LABS: BILIRUBIN,TOTAL 0.4 mg/dL (0.2-1); CREATININE 0.7 mg/dL (0.55-1.3)
[2021-06-17 10:09] LABS: BLOOD UREA NITROGEN 11.3 mg/dL (7-18); CALCIUM 8.9 mg/dL (8.5-10.1); TOT PROT 6.5 g/dl (6.4-8.2)
[2021-06-17 10:12] LABS: ALBUMIN 3.5 g/dl (3.4-5.0)
[2021-06-17] MEDS: PANTOPRAZOLE 40 MG TABLET PO SCH (10:30)
[2021-06-17] MEDS ORDERED: PANTOPRAZOLE 40 MG TABLET ONE (15:18)
[2021-06-18] MEDS: METOPROLOL TARTRATE 50 MG TABLET (FP) PO SCH (06:01)
[2021-06-18] MEDS ORDERED: DEXTROSE 5%-WATER - 50 ML IVPB ONE (09:43)
[2021-06-18] MEDS ORDERED: cefTRIAXone SODIUM 1 GM VIAL ONE (09:43)
[2021-06-18] MEDS: PANTOPRAZOLE 40 MG TABLET PO SCH (10:16)
[2021-06-18] MEDS: HEPARIN NA (PORCINE) 5,000 UNITS/ML 1ML VIAL SQ SCH (10:17)
[2021-06-18] MEDS: ASPIRIN 81 MG CHEWABLE TABLETS PO SCH (10:17)
[2021-06-18] MEDS: LOSARTAN POTASSIUM 50 MG TABLET PO SCH (10:17)
[2021-06-18] MEDS: CEFTRIAXONE 1 GM in DEXTROSE 5%-WATER - 50 ML IVPB SCH (10:18)
[2021-06-18 14:48] VITALS: BP 139/85; PULSE 88; TEMP 98.1
== END 2021-06-18 20:05 | disposition home or self-care (01) ==
LOC: JER 18:05 → JERBED 06-17 00:01 → UNDOADMOB 06-17 00:01 → INTOOBSV 06-17 00:01 → JERBED 06-17 12:35 → J7W 06-17 15:31
PROVIDERS: ADMIT Internal Medicine; ATTEND Internal Medicine
PROC: 3E03329 Introduction of Other Anti-infective into Peripheral Vein, Percutaneous Approach (ICD-10-PCS; principal; 2021-06-17)
PROC: 3E023GC Introduction of Other Therapeutic Substance into Muscle, Percutaneous Approach (ICD-10-PCS; 2021-06-17)
DX: K76.89 Other specified diseases of liver (principal); R91.8 Other nonspecific abnormal finding of lung field; R59.1 Generalized enlarged lymph nodes; R10.13 Epigastric pain; I10 Essential (primary) hypertension; E78.5 Hyperlipidemia, unspecified; R11.0 Nausea; Z96.642 Presence of left artificial hip joint; Z88.8 Allergy status to other drugs, medicaments and biological substances
CPT/HCPCS: 36415; 71260-TC; 74177-TC; 80053; 82550; 84484; 85025; 93005; 93010; 96365; 96372; 99285-25; C9803; G0378; J1644; Q9967; U0003; U0005